=== PATIENT | female | born 1995 | race Hispanic/Latino ===

== ENCOUNTER 2019-02-21 14:59 | Emergency (ER) | payer OTHER, SELFPAY ==
[2019-02-21 15:08] VITALS: BP 118/87; PULSE 109; RESP 20; TEMP 37; O2SAT 100; BMI 22.1
[2019-02-21 17:29] LABS: Influenza A - CEPHEID Flu A NEGATIVE (NEGATIVE)
[2019-02-21 17:30] LABS: Influenza B - CEPHEID Flu B POSITIVE (NEGATIVE)
[2019-02-21] MEDS: ONDANSETRON 4 MG ODT PREPACK 1 BOTTLE MISC (18:27)
[2019-02-21 18:30] VITALS: BP 111/72; PULSE 107; RESP 20; O2SAT 99
--- NOTE | 2019-02-21 19:09 | ED.URI ---
HPI - URI/Sore Throat <IVANA Perez - Last Filed: 02/21/19 19:14> General Chief Complaint: Upper Respiratory Symptoms Stated Complaint: 4 days not feeling well flu like symptoms Time Seen by Provider: 02/21/19 15:29 Source: patient Mode of arrival: Family Vehicle Limitations: no limitations History of Present Illness HPI Narrative: The patient is a 24-year-old female nonsmoker who's 6 weeks presents with a chief complaint of ?I think I've the flu. She had fevers, chills, general malaise no abdominal pain no nausea or vomiting for the past 4-5 days. She denies dysuria urgency or frequency. She states she is around people for work. Denies any ear pain or sore throat. Has not had the flu shot. Denies any productive cough but does complain of dry cough. Related Data Previous Rx's Medication Instructions Recorded ondansetron 4 mg PO Q6H PRN #14 tab 02/21/19 Allergies Allergy/AdvReac Type Severity Reaction Status Date / Time No Known Drug Allergies Allergy Verified 02/21/19 15:13 Review of Systems <IVANA Perez - Last Filed: 02/21/19 19:14> Review of Systems Narrative: GENERAL: See HPI HEENT: Denies sinus pain, ear pain, sore throat, difficulty swallowing, dizziness. RESPIRATORY: Denies dyspnea, cough, wheezing, hemoptysis, sputum. CARDIOVASCULAR: Denies chest pain, palpitations, orthopnea, edema, GASTROINTESTINAL: Denies nausea, vomiting, abdominal pain, diarrhea, constipation, melena. : Denies dysuria, frequency, incontinence, hematuria, urinary retention. MUSCULOSKELETAL: denies weakness, joint pain, or bony pain SKIN: Denies rash, skin lesions, or other NEUROLOGIC: Denies weakness, headache, numbness, change in speech, confusion, seizures, incoordination. PSYCHIATRIC: No concerning psychosocial issues. 12 point review of systems is negative except for those stated above Patient History <IVANA Perez - Last Filed: 02/21/19 19:14> Social History Smoking Status: Never smoker Smoking Status: Never smoker alcohol intake frequency: 0-2 drinks per day Substance Use Type: does not use Exam <IVANA Perez - Last Filed: 02/21/19 19:14> Narrative Exam Narrative: GENERAL: This is a well-nourished, well-developed patient, no acute distress HEAD: Atraumatic. Normocephalic. No temporal or scalp tenderness. EYES: Pupils equal round and reactive. Extraocular motions intact. No scleral icterus. No injection or drainage. ENT: Nose without bleeding, purulent drainage or septal hematoma. Throat without erythema, tonsillar hypertrophy or exudate. Uvula midline. Airway patent. Bilateral TMs pearly mauricio. NECK: Trachea midline. No JVD or lymphadenopathy. Supple, nontender, no meningeal signs. CARDIOVASCULAR: Regular rate and rhythm without murmurs, gallops, or rubs. RESPIRATORY: Clear to auscultation. Breath sounds equal bilaterally. No wheezes, rales, or rhonchi. No cough. No increased respiratory effort. No accessory muscle use. GASTROINTESTINAL: Abdomen soft, non-tender, nondistended. No hepato-splenomegaly, or palpable masses. No guarding. Bowel sounds all 4 quadrants. EXTREMITIES: No clubbing, cyanosis, or edema. No joint tenderness, effusion, or edema noted. BACK: Nontender without deformity or crepitance. No flank tenderness. NEURO: AOx3. SKIN: No rash or erythema on skin Initial Vital Signs Initial Vital Signs: Vital Signs Temperature 98.6 F 02/21/19 15:08 Pulse Rate 109 H 02/21/19 15:08 Respiratory Rate 20 02/21/19 15:08 Blood Pressure 118/87 02/21/19 15:08 Pulse Oximetry 100 02/21/19 15:08 <Lucie Shah MD - Last Filed: 02/22/19 17:46> Initial Vital Signs Initial Vital Signs: Vital Signs Temperature 98.6 F 02/21/19 15:08 Pulse Rate 109 H 02/21/19 15:08 Respiratory Rate 20 02/21/19 15:08 Blood Pressure 118/87 02/21/19 15:08 Pulse Oximetry 100 02/21/19 15:08 Course <XAVIER Perez-ISABELLA - Last Filed: 02/21/19 19:14> Orders Ordered: Discontinued Medications Ondansetron HCl (Zofran Odt Prepack) 1 bottle MISC SEEINSTR ONE Stop: 12/14/19 18:08 Last Admin: 02/21/19 18:27 Dose: 1 bottle Documented by: MEISENColette Vital Signs Vital signs: Vital Signs - 8 hr 02/21/19 15:08 02/21/19 18:30 Temperature 98.6 F Pulse Rate 109 H 107 H Respiratory Rate 20 20 Blood Pressure 118/87 111/72 Pulse Oximetry 100 99 <Lucie Shah MD - Last Filed: 02/22/19 17:46> Orders Ordered: Discontinued Medications Ondansetron HCl (Zofran Odt Prepack) 1 bottle MISC SEEINSTR ONE Stop: 02/21/19 18:08 Last Admin: 02/21/19 18:27 Dose: 1 bottle Documented by: DAVE Vital Signs Vital signs: Vital Signs - 8 hr 02/21/19 15:08 02/21/19 18:30 Temperature 98.6 F Pulse Rate 109 H 107 H Respiratory Rate 20 20 Blood Pressure 118/87 111/72 Pulse Oximetry 100 99 MDM - URI/Sore Throat <IVANA Perez - Last Filed: 02/21/19 19:14> Lab Data Labs: Lab Results 02/21/19 Range/Units 17:02 Influenza A (RT-PCR) Flu a negative (NEGATIVE) Influenza B (RT-PCR) Flu b positive H (NEGATIVE) Point of Care Testing Test Results Positive Urine Dip Bedside Urine Glucose Negative Bedside Urine Bilirubin + 1 Bedside Urine Ketone +++ 80 Urine Specific [place] 1.015 Bedside Urine Occult Blood - Negative Bedside Urine pH 6.5 Bedside Urine Protein +/- 15 Bedside Urine Urobilinogen - Negative Bedside Urine Nitrite - Negative Bedside Urine Leukocytes - Negative Esterase MDM Narrative Medical decision making narrative: The patient is a 24-year-old female who presents with 4-5 days of flu-like symptoms. She does positive for flu B. The porch as she is out of the Tamiflu window. Discussed at length pushing fluids, [id number] measures as needed and able. Discussed no NSAIDs. Encourage PCP follow-up in the next few days. Discussed that she is contagious, staying home from work etc.. Patient appears grossly nontoxic throughout her stay in the emergency department, is afebrile and well hydrated. Patient has no questions or concerns upon discharge and states understanding of return precautions as well as follow-up care. <Lucie Shah MD - Last Filed: 02/22/19 17:46> Lab Data Labs: Lab Results 02/21/19 Range/Units 17:02 Influenza A (RT-PCR) Flu a negative (NEGATIVE) Influenza B (RT-PCR) Flu b positive H (NEGATIVE) Point of Care Testing Test Results Positive Urine Dip Bedside Urine Glucose Negative Bedside Urine Bilirubin + 1 Bedside Urine Ketone +++ 80 Urine Specific [place] 1.015 Bedside Urine Occult Blood - Negative Bedside Urine pH 6.5 Bedside Urine Protein +/- 15 Bedside Urine Urobilinogen - Negative Bedside Urine Nitrite - Negative Bedside Urine Leukocytes - Negative Esterase Discharge Plan Departure Patient Disposition: Home Clinical Impression: Influenza Discharge Date/Time: 02/21/19 18:30 Instructions: DI for Influenza -- Adult Activity Restrictions/Additional Instructions: Thank you for trusting us with your care today Unfortunately you tested positive for influenza B Please rest, push fluids, use [id number] medications as needed and able [facility] Please come back to the emergency department for any acute concerns Prescriptions: New ondansetron 4 mg tablet,disintegrating 4 mg PO Q6H PRN (Reason: nausea and vomiting) Qty: 14 RF: 0 Referrals: [facility] [Provider Group] Stand Alone Forms: Work Release Note
== END 2019-02-21 18:30 | disposition home or self-care (01) ==
PROVIDERS: Emergency Provider Nurse Practitioner Family
DX: J10.1 Influenza due to other identified influenza virus with other respiratory manifestations (principal)
CPT/HCPCS: 81003; 81025; 87502; 99281; 99282

== ENCOUNTER 2019-03-24 23:06 | Emergency (ER) | payer OTHER, SELFPAY ==
[2019-03-24 23:15] VITALS: PULSE 92; RESP 16; TEMP 37.2; O2SAT 98; BMI 23.0
[2019-03-24 23:18] VITALS: BP 112/74
[2019-03-25 00:36] LABS: Bacteria Urine Few (2-10); Squamous Epithelial Cell Urine 1-5 /HPF (0-5/HPF); WBC Urine 0-1/HPF (0-5/HPF)
[2019-03-25 00:37] LABS: Culture Indicated Urine Cult Not Indicated; RBC Urine 0-1/HPF (0-5/HPF)
--- NOTE | 2019-03-25 01:21 | ED.BACK ---
HPI - Back Pain/Injury General Chief Complaint: Back Pain/Injury Stated Complaint: 11 weeks preg, severe back pain, advice rn sent in Time Seen by Provider: 03/25/19 01:10 Source: patient Mode of arrival: Ambulatory History of Present Illness HPI Narrative: The patient is . She is currently 11 weeks . Over the past 2 weeks she has been experiencing low back pain. She has no incontinence. She has weakness in her legs, without numbness or tingling in her legs. She is ambulatory. She has no prior history of back problems. She has had no injuries. 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 She has no chronic medical problems, she has taken Tylenol for pain but there are no other medications she uses regularly. She has no history of surgeries. Related Data Previous Rx's Medication Instructions Recorded ondansetron 4 mg PO Q6H PRN #14 tab 02/21/19 hydrocodone-acetaminophen [[place]] 1 tab PO Q4-6H PRN #14 tab 03/25/19 Allergies Allergy/AdvReac Type Severity Reaction Status Date / Time No Known Drug Allergies Allergy Verified 03/24/19 23:17 Review of Systems Review of Systems ROS Unobtainable: All systems reviewed & are unremarkable except as noted in HPI and below Constitutional Constitutional: Denies body ache(s) and Denies chills Gastrointestinal Gastrointestinal: Denies abdominal pain, Denies nausea and Denies vomiting Genitourinary Genitourinary: Denies dysuria and Denies flank pain Musculoskeletal Musculoskeletal: Denies back pain, Reports muscle weakness (Both legs), Denies numbness and Denies tingling Integumentary/Breasts Skin/Breast: Denies rash Neurologic Neurologic: Denies numbness and Denies tingling Patient History Medical History (Updated 03/25/19 @ 01:34 by Milan Barnett MD) No acute medical problems (Acute) Surgical History (Updated 03/25/19 @ 01:24 by Milan Barnett MD) No history of previous surgery (Acute) Social History Smoking Status: Never smoker Smoking Status: Never smoker alcohol intake frequency: 0-2 drinks per day Substance Use Type: does not use Exam Initial Vital Signs Initial Vital Signs: Vital Signs Temperature 98.9 F 03/24/19 23:15 Pulse Rate 92 H 03/24/19 23:15 Respiratory Rate 16 03/24/19 23:15 Pulse Oximetry 98 03/24/19 23:15 Const General: cooperative and well developed Nutritional Appearance: well nourished GI Inspection: non-distended Palpation: soft and No guarding Auscultation: normal bowel sounds Back/Spine/Pelvis Back: No CVA tenderness Other: No lumbar tenderness. Left SI tenderness. No deformity. Skin General: no rashes or lesions noted Neuro General: alert, oriented x3 and gait normal Speech: speech normal Gait: normal gait Sensory Exam: no sensory deficits noted Other: Negative straight leg raise bilaterally. Extrem Other: No hip tenderness. Full range of motion at hips, and lower extremities. No focal weakness. Course Course Course Narrative: The patient has left sacroiliitis. She is taking Tylenol, she realized to take [place] every 4 hours as needed for added pain control when necessary. She is advised to a lot of walking and stretching. She is advised to walk stress frequently when at work. She is advised follow-up with her doctor. Orders Ordered: ED Orders 03/25/19 00:20 Urine Microscopic Stat Discontinued Medications Hydrocodone Bitart/Acetaminophen (Vicodin 5/325 Prepack) 1 bottle MISC SEEINSTR ONE Stop: 03/25/19 01:22 Vital Signs Vital signs: Vital Signs - 8 hr 03/24/19 23:15 03/24/19 23:18 Temperature 98.9 F Pulse Rate 92 H Respiratory Rate 16 Blood Pressure [Left Arm] 112/74 Pulse Oximetry 98 MDM - Back Pain/Injury Lab Data Labs: Lab Results 03/25/19 Range/Units 00:20 Urine RBC 0-1/hpf (0-5/HPF) Urine WBC 0-1/hpf (0-5/HPF) Ur Squamous Epith Cells 1-5 /hpf (0-5/HPF) Urine Bacteria Few (2-10) H (None) Ur Culture Indicated? Cult not indicated Point of Care Testing Test Results Positive Urine Dip Bedside Urine Glucose Negative Bedside Urine Bilirubin - Negative Bedside Urine Ketone - Negative Urine Specific [place] 1.025 Bedside Urine Occult Blood - Negative Bedside Urine pH 6.0 Bedside Urine Protein - Negative Bedside Urine Urobilinogen - Negative Bedside Urine Nitrite - Negative Bedside Urine Leukocytes + 70 Esterase Discharge Plan Departure Patient Disposition: Home Clinical Impression: Sacroiliitis, 11 weeks gestation of Instructions: Low Back Pain Activity Restrictions/Additional Instructions: Tylenol 2 tablets every 4 hours as needed for pain. [place] every 4 hours as needed for added pain control. Walk-in stress frequently. No work for the next 5 days. When at work you should be up and stretching frequently. Follow-up with her doctor for ongoing guides. Return to ER as necessary. Prescriptions: New hydrocodone-acetaminophen [[place]] 5-325 mg tablet 1 tab PO Q4-6H PRN (Reason: pain) Qty: 14 RF: 0 No Action ondansetron 4 mg tablet,disintegrating 4 mg PO Q6H PRN (Reason: nausea and vomiting) Qty: 14 RF: 0 Stand Alone Forms: Work Release Note
[2019-03-25] MEDS: HYDROCODONE/ACET 5/325 PREPACK 1 BOTTLE MISC (01:32)
[2019-03-25 01:40] VITALS: BP 104/72; PULSE 79; RESP 16; O2SAT 99
== END 2019-03-25 01:40 | disposition home or self-care (01) ==
PROVIDERS: Emergency Provider Emergency Medicine
DX: O26.891 Other specified pregnancy related conditions, first trimester (principal); M46.1 Sacroiliitis, not elsewhere classified; Z3A.11 11 weeks gestation of pregnancy
CPT/HCPCS: 81003; 81015; 81025; 99282; 99283

== ENCOUNTER → 2019-03-31 09:25 | Outpatient (CLI) | payer OTHER, SELFPAY ==
[2019-03-31 14:44] LABS: Urine N gonorrhoeae NOT DETECTED
[2019-03-31 14:46] LABS: Urine Chlamydia NOT DETECTED
== END ==
PROVIDERS: Visit Provider Family Medicine
DX: Z11.3 Encounter for screening for infections with a predominantly sexual mode of transmission (principal); Z11.8 Encounter for screening for other infectious and parasitic diseases; Z3A.11 11 weeks gestation of pregnancy
CPT/HCPCS: 87491; 87591

== ENCOUNTER → 2019-04-02 09:41 | Outpatient (CLI) | payer OTHER, SELFPAY ==
[2019-04-02 10:40] LABS: Appearance Urine UA CLOUDY; Bilirubin Urine UA NEGATIVE (NEGATIVE); Color Urine UA YELLOW; Glucose Urine UA NEGATIVE (Negative); Ketones Urine UA NEGATIVE (NEGATIVE); Leukocyte Esterase Urine UA TRACE (NEGATIVE); Nitrite Urine UA NEGATIVE (Negative); Occult Blood Urine UA NEGATIVE (Negative); Protein Urine UA NEGATIVE (Negative); Urobilinogen Urine UA 0.2 E.U./dL (0.2)
[2019-04-02 10:51] LABS: Add Manual Diff / Slide Review NO; Basophils Absolute Auto 0 /uL (0-100); Basophils Percent Auto 0.2 % (0-2); Eosinophils Absolute Auto 200 /uL (0-450); Eosinophils Percent Auto 2.2 % (2-4); Hematocrit 40.1 % (36-46); Hemoglobin 14.2 g/dL (12.0-16.0); Lymphocytes Absolute Auto 2100 /uL (1100-4500); Lymphocytes Percent Auto 22.9 % (25-40); Mean Corpuscular HGB Conc 35.5 % (30-36); Mean Corpuscular Hemoglobin 31.4 PG (26-34); Mean Corpuscular Volume 88.5 fL (80-100); Monocytes Absolute Auto 500 /uL (0-900); Monocytes Percent Auto 5.7 % (3-14); Neutrophils Absolute Auto 6300 /uL (1500-7000); Platelet Count 285 X10^3/uL (150-400); Red Blood Cell Count 4.53 X10^6/uL (4.0-5.2); Red Cell Distribution Width 14.1 % (11.6-14.8); White Blood Cell Count 9.1 X10^3/uL (4.5-11.0)
[2019-04-02 11:14] LABS: Amorphous Sediment Urine 2+; Bacteria Urine Many (>30); RBC Urine 0-1/HPF (0-5/HPF); Squamous Epithelial Cell Urine 10-30 /HPF (0-5/HPF); WBC Urine 1-5/HPF (0-5/HPF)
[2019-04-02 11:43] LABS: Hepatitis B Surface Antigen NEGATIVE s/c (NEGATIVE); Rubella Antibody IgG 30.9 IU/mL (>15)
[2019-04-02 11:59] LABS: HIV 1 & 2 Ab/Ag 4th Gen Combo NEGATIVE (NEGATIVE); Hep C Virus Ab w/Reflex Quant NEGATIVE s/c (NEGATIVE)
[2019-04-03 22:23] LABS: RPR Screen Nonreactive (Nonreactive)
== END ==
PROVIDERS: Visit Provider Family Medicine
DX: Z34.01 Encounter for supervision of normal first pregnancy, first trimester (principal)
CPT/HCPCS: 36415; 80055; 81003; 81015; 86787; 86803; 86850; 86900; 86901; 87086; 87389

== ENCOUNTER → 2019-04-28 10:56 | Outpatient (CLI) | payer OTHER, SELFPAY ==
[2019-04-30 18:05] LABS: Brief History NTD NG; Cigarette Smoker N; Donated Egg NOT GIVEN; Donor Egg Age NOT GIVEN; Estriol, Free 1.18 ng/mL; Inhibin A, Dimeric 187 pg/mL; Inhibin A, MoM 1.07; Maternal Ethnicity HISPANIC; Maternal Weight 132 lbs; Number of Fetuses 1; Previous Pregnancy Down Syndro NOT GIVEN; hCG, MoM 1.51; hCG, Serum 56.8 IU/mL
== END ==
PROVIDERS: PCP Family Medicine; Referring Provider Family Medicine; Visit Provider Family Medicine
DX: Z34.02 Encounter for supervision of normal first pregnancy, second trimester (principal); Z3A.16 16 weeks gestation of pregnancy
CPT/HCPCS: 36415; 82105; 82677; 84702; 86336

== ENCOUNTER 2019-05-17 22:51 | Emergency (ER) | payer OTHER, SELFPAY ==
[2019-05-17 22:57] VITALS: BP 126/85; PULSE 88; RESP 14; TEMP 36.9; O2SAT 99
--- NOTE | 2019-05-17 23:04 | DI.US.S_ITS ---
PROCEDURE: US OB LIMITED INDICATIONS: VAGINAL BLEEDING IN OUTSIDE/PRIOR DATING DATA: Last menstrual period (LMP): Not available. LMP-based estimated date of delivery (AIDA): 10/13/19. First dating scan (date and location): Not available. Estimated date of delivery (AIDA) from first dating scan: Not available. TECHNIQUE: Real-time scanning was performed of the fetus, with image documentation. COMPARISON: None. FINDINGS: A single living intrauterine gestation is present. Presentation: Breech Placenta: Placental position is anterior, without previa. heart rate: 139 beats per minute. Maternal cervical canal: 4.0 cm long. Normal lower limit is 2.5 cm. A placental abruption or subchorionic hemorrhage as cause of vaginal bleeding is not found. IMPRESSION: Limited study as ER physician request. Source of vaginal bleeding not found. Single living interuterine gestation. Followup complete anatomic survey ultrasound is scheduled in the near term, reportedly in 2 days. Dictated by: Candido Ken M.D. on 05/18/2019 at 10:01 Approved by: Candido Ken M.D. on 05/18/2019 at 10:07
--- NOTE | 2019-05-17 23:13 | ED.PREGNANCY ---
HPI - General Chief complaint: Vaginal Bleeding Stated complaint: 19wks preg and bleeding Time Seen by Provider: 05/17/19 22:53 Source: patient Mode of arrival: Ambulatory Limitations: no limitations History of Present Illness HPI Narrative: 24-year-old female nonsmoker is a at 19 weeks with a previously normal . She presents with a brief episode of painless spotting after intercourse tonight. She denies any pain nor ongoing bleeding. She denies any vaginal discharge nor urinary complaints such as dysuria, frequency or urgency. She is not dizzy nor weak or lightheaded. She denies runny nose, sore throat or cough. She denies chest pain or shortness of breath. She has had a normal to this point time including ultrasounds demonstrating a healthy intrauterine MD Complaint: vaginal bleeding Onset (ago): hour(s) Pain Consistency: now resolved Severity: mild Associated symptoms: vaginal bleeding Vaginal bleeding: light Patient : Yes OB History - Current : no complications care: followed by OB Related Data : 1 Para: 0 Home Medications Medication Instructions Recorded Confirmed prenat.vits,rosario,[id number] 1 tab PO DAILY 03/31/19 05/19/19 Allergies Allergy/AdvReac Type Severity Reaction Status Date / Time No Known Drug Allergies Allergy Verified 05/19/19 09:53 Review of Systems Constitutional Constitutional: Denies chills, Denies fatigue, Denies fever(s), Denies frequent falls, Denies lethargy and Denies weakness Eyes Eyes: Denies change in vision, Denies eye discharge, Denies irritation and Denies loss of vision ENT Ears, Nose, Mouth, and Throat: Denies change in voice, Denies dizziness, Denies neck pain, Denies sore throat and Denies throat swelling Cardiovascular Cardiovascular: Denies chest pain, Denies irregular heart rhythm, Denies lightheadedness, Denies palpitations, Denies dyspnea, Denies dyspnea on exertion and Denies orthopnea Respiratory Respiratory: Denies cough, Denies dyspnea, Denies dyspnea on exertion and Denies wheezing Gastrointestinal Gastrointestinal: Denies abdominal pain, Denies change in bowel habits, Denies diarrhea, Denies nausea and Denies vomiting Genitourinary Genitourinary: Denies hematuria, Denies flank pain, Denies urinary incontinence and Denies urinary urgency Musculoskeletal Musculoskeletal: Denies back pain, Denies muscle weakness, Denies neck pain, Denies numbness and Denies tingling Integumentary/Breasts Skin/Breast: Denies pruritus, Denies erythema, Denies rash and Denies wounds Neurologic Neurologic: Denies behavioral changes, Denies confusion, Denies dizziness, Denies frequent falls, Denies loss of vision, Denies numbness, Denies tingling and Denies weakness Psychiatric Psychiatric: Denies anxiety, Denies behavioral changes, Denies confusion, Denies depression, Denies homicidal ideation and Denies suicidal ideation Endocrine Endocrine: Denies fatigue, Denies flushing and Denies palpitations Hematologic/Lymphatic Hematologic/Lymphatic: Denies easy bruising Allergic/Immunologic Allergic/Immunologic: Denies urticaria, Denies throat swelling and Denies wheezing PMFSH - Past Medical History Patient : Yes Exam Narrative Exam Narrative: GEN: 24-year-old female AOx3 and in minimal distress EYES: Pupils are equal, round, and reactive to light and accommodation. Extraoccular muscles are intact bilaterally. There is no subconjunctival hemorrhage or exudate. CHEST: Lungs are clear to auscultation bilaterally and free of wheezes, rales, or rhonchi. Heart rate is regular rhythm, there are no murmurs, clicks, rubs, or gallops. There is no chest wall tenderness. ABD: Abdomen is soft and nontender, gravid. There is no guarding or rebound. Bowel sounds are normal in all 4 quadrants. There is no mass or organomegaly. EXT: Full painless ROM of all extremities with no loss of sensation or strength. SKIN: Warm, pink, and dry. No erythema or rash Initial Vital Signs Initial Vital Signs: Vital Signs Temperature 98.4 F 05/17/19 22:57 Pulse Rate 88 05/17/19 22:57 Respiratory Rate 14 05/17/19 22:57 Blood Pressure 126/85 05/17/19 22:57 Pulse Oximetry 99 05/17/19 22:57 Course Orders Ordered: ED Orders 05/17/19 23:04 US OB limited Stat Vital Signs Vital signs: Vital Signs - 8 hr 05/17/19 22:57 Temperature 98.4 F Pulse Rate 88 Respiratory Rate 14 Blood Pressure 126/85 Pulse Oximetry 99 Discharge Plan Departure Patient Disposition: Home Clinical Impression: Vaginal bleeding in Discharge Date/Time: 05/18/19 00:07 Instructions: DI for Vaginal Bleeding During Activity Restrictions/Additional Instructions: *You have been diagnosed with [vaginal bleeding during ] *What to do: * continue to take medications as directed. 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 Let them know you were seen in the Emergency Department and that we ask that you be seen in follow up *Return to ER if you should have any new, worsening or concerning symptoms, such as [increased bleeding, particularly if you saturate a pad per hour, fever greater than 101 F, pain or other concerning symptoms] Prescriptions: No Action prenat.vits,rosario,[id number] Tablet 1 tab PO DAILY RF: 0 Referrals: aSúl Vasquez MD [Primary Care Provider] -
--- NOTE | 2019-05-17 23:22 | PC.NURSE ---
pt reports bright red blood after intercourse. Fair amount initially but has slow at this time. Patient 19 weeks . Denies cramping or pain at this time.
== END 2019-05-18 00:07 | disposition home or self-care (01) ==
PROVIDERS: Emergency Provider Emergency Medicine; PCP Family Medicine
DX: O46.92 Antepartum hemorrhage, unspecified, second trimester (principal); Z3A.19 19 weeks gestation of pregnancy
CPT/HCPCS: 76815; 99283

== ENCOUNTER → 2019-05-19 10:52 | Outpatient (CLI) | payer OTHER, SELFPAY ==
--- NOTE | 2019-05-19 10:53 | DI.US.S_ITS ---
PROCEDURE: US OB >= 14 WEEKS FETUS INDICATIONS: ANATOMIC SURVEY OUTSIDE/PRIOR DATING DATA: Last menstrual period (LMP): Unknown. LMP-based estimated date of delivery (AIDA): 10/13/19. First dating scan (date and location): Not available Estimated date of delivery (AIDA) from first dating scan: Not available. TECHNIQUE: Real-time scanning was performed of the fetus, with image documentation and biometric measurements. Endovaginal scanning: Not performed COMPARISON: [facility], OB LIMITED, 05/17/2019, 23:33. FINDINGS: General: A single living intrauterine gestation is present. Presentation: Breech. Placenta: Placental position is anterior, without previa. Amniotic fluid index: 13.5 cm, normal range is 5-24 cm. heart rate: 139 beats per minute. Maternal cervical canal: 3.7 cm long. Normal lower limit is 2.5 cm. biometrics: Biparietal diameter: 4.0 cm, 18 weeks 2 days Head circumference: 15.5 cm, 18 weeks 3 days Abdominal circumference: Vertebral at 1 cm, 18 weeks 4 days Femur length: 2.7 cm, 18 weeks one day Estimated gestational age from initial scan: 19 weeks zero days Composite gestational age from present scan: 18 weeks 3 days Estimated weight and percentile: 238 g, 16th percentile Measurement variability for biometric dating: +/- 7 days from 14 weeks to 15 weeks 6 days gestation, +/- 10 days from 16 weeks to 21 weeks 6 days gestation, +/- 2 weeks from 22 weeks to 27 weeks 6 days gestation, +/- 3 weeks for 28 weeks gestation or later. weight reference: 4500 g or EFW >90/95% is considered macrosomia or large for gestational age. EFW <10% is small for gestational age. EFW 5% or less is considered intra-uterine growth restriction. Incidental presumed placental venous lakes. Anatomic survey: Neuro: Ventricles are non-dilated at less than 10 mm. Cisterna magna is normal at 3-11 mm. Cerebellum is normal in size and morphology. Nuchal skin fold: Normal at less than 6 mm between 14-21 weeks gestational age. Face: Nose and lips, facial profile are normal. Spine: No evidence for spina bifida. Heart: 4-chambered heart is present, with normal ventricular outflow tracts. Diaphragm: Diaphragm is intact. Stomach: Left-sided stomach is present. Kidneys: No hydronephrosis. Normal is less than 5 mm in 2nd trimester, less than 7 mm in 3rd trimester. Cord: 3-vessel cord has orthotopic insertion. Bladder: Normal in size. Extremities: All 4 extremities identified. IMPRESSION: Single living intrauterine fetus in breech presentation. Expected interval growth. Normal anatomic survey Dictated by: Amrit Earl M.D. on 05/19/2019 at 16:17 Approved by: Amrit Eral M.D. on 05/19/2019 at 16:21
== END ==
PROVIDERS: PCP Family Medicine; Referring Provider Family Medicine; Visit Provider Family Medicine
DX: Z34.02 Encounter for supervision of normal first pregnancy, second trimester (principal); Z3A.18 18 weeks gestation of pregnancy
CPT/HCPCS: 76811

== ENCOUNTER → 2019-07-10 10:16 | Outpatient (CLI) | payer OTHER, SELFPAY ==
[2019-07-10 12:02] LABS: Hematocrit 39.4 % (36-46); Hemoglobin 13.3 g/dL (12.0-16.0)
[2019-07-10 13:01] LABS: GTT (PREG) 1 Hour PP 50gm Dose 107 mg/dL (76-139)
== END ==
PROVIDERS: PCP Family Medicine; Referring Provider Family Medicine; Visit Provider Family Medicine
DX: Z34.02 Encounter for supervision of normal first pregnancy, second trimester (principal); Z3A.24 24 weeks gestation of pregnancy
CPT/HCPCS: 36415; 82950; 85014; 85018

== ENCOUNTER → 2020-06-16 15:57 | Outpatient (CLI) | payer OTHER, SELFPAY ==
[2020-06-16] MEDS: COVID-19 VACC, Ad26(JANSSEN)/PF 0.5 ML IM (16:06)
== END ==
PROVIDERS: PCP Family Medicine; Visit Provider Internal Medicine
DX: Z23 Encounter for immunization (principal)
CPT/HCPCS: 0031A; 91303